=== PATIENT | male | born 1995 | race Caucasian/White ===

== ENCOUNTER 2023-02-24 12:43 | Emergency (ER) | payer OTHER, SELFPAY ==
--- NOTE | ~2023-02-24 | XR_ITS ---
EXAMINATION: XR chest 2V DATE: 02/24/2023 14:51 INDICATION: Tightness and burning sensation at the chest TECHNIQUE: PA and lateral views of the chest were obtained. COMPARISON: None FINDINGS: The lungs are clear with no focal airspace opacities, pulmonary edema, pleural effusion or pneumothor ax. The cardiomediastinal silhouette is normal. Mild thoracic spondylosis with mild anterior wedging of a couple mid thoracic vertebral bodies. IMPRESSION: 1. No acute cardiopulmonary disease. Reviewed, dictated and finalized at location A.
[2023-02-24 13:20] VITALS: BP 167/80; PULSE 67; RESP 16; TEMP 36.7; O2SAT 100
--- NOTE | 2023-02-24 14:07 | ED.GENADULT ---
HPI - General Adult General Chief complaint: Upper Respiratory Infection Stated complaint: Sore Throat Source: patient Mode of arrival: ambulatory Limitations: no limitations History of Present Illness HPI narrative: Patient presents for evaluation of tightness and discomfort in his throat and chest for the past two days. He woke from sleep with his symptoms. He thought his symptoms were related to heartburn. He tried taking pepcid but it did not help. He went to [facility] urgent care earlier today and was given omeprazole for his symptoms. He was not pleased with his care there. He states it feels like sandpaper when he swallows. He denies any SOB, nausea or vomiting. He does not particularly watch his diet. He consumes ETOH four days per week with anywhere between 4-10 drinks per episode. He states he is being treated for hemorrhoids at the present time. He states he had an EKG by his PCP a few weeks ago which was normal. No known family hx of CAD> Related Data Allergies Allergy/AdvReac Type Severity Reaction Status Date / Time No Known Allergies Allergy Unverified 01/13/19 18:30 Review of Systems Review of Systems: CONSTITUTIONAL: Denies fever, chills, or sweats. EYES: Denies visual changes, redness, or discharge. ENT: Reports throat tightness and irritation. Denies rhinorrhea, congestion, or otalgia. CARDIOVASCULAR: Reports chest tightness and discomfort, which is more noticeable when he swallows. Denies palpitations, or edema. RESPIRATORY: Denies cough or dyspnea. GASTROINTESTINAL: Denies abdominal pain, nausea, vomiting, or diarrhea. GENITOURINARY: Denies dysuria or hematuria. SKIN: Denies rash or itching. MUSCULOSKELETAL: Denies back pain, joint pain, or myalgia. NEUROLOGIC: Denies headache, numbness, dizziness, or weakness. PSYCHIATRIC: Denies anxiety or depression. [facility] Past Medical History Medical History (Updated 02/24/23 @ 15:21 by Vikram Newby, AMELIA, KIMBERLEY) No pertinent past medical history Surgical History Surgical History No pertinent past surgical history Family History Family History Mother Family history non-contributory Social History Social History Alcohol intake: current Alcohol use details: 4-10 drinks 4 times per week Gender identity (if verbalized by the patient): Male Spiritual care concerns: No Exam Narrative: GENERAL: Well-appearing, well-nourished, and in no acute distress. HEAD: Normocephalic, atraumatic. EYES: PERRLA and EOMI. ENT: Nares clear, no rhinorrhea or epistaxis. Mucous membranes moist. Oropharynx without tonsillar hypertrophy exudate or other lesions. Bilateral TMs pearly berg nonbulging NECK: Supple. No adenopathy or masses. No carotid bruits or JVD CHEST: Clear to auscultation. No respiratory distress. No wheezes rales or rhonchi HEART: Regular rate and rhythm. No murmur heard. Normal peripheral pulses. ABDOMEN: Soft, nontender, nondistended, normal active bowel sounds. EXTREMITIES: Normal range of motion. No edema. SKIN: Warm, dry, no rash. NEURO: No focal deficits. Alert and oriented x3. PSYCH: Normal mood and affect. Course Course Emergency Course: This is a 28-year-old male who presented for evaluation of throat discomfort. Exam is consistent with gastritis with esophagitis. Advise he cut down on alcohol consumption. Advised on bland diet. Pepcid will usually not provide on demand relief. Take omeprazole 30 minutes before you eat or drink anything drain the day for the next 2 weeks. Relates will help with onto me and symptoms. Chest x-ray normal. Follow-up with primary provider. Go to the emergency department for worsening symptoms. Patient in agreement plan of care. Level of Care: Express Care Visit Vital Signs Vital signs: Vital Signs Te
== END 2023-02-24 15:26 | disposition home or self-care (01) ==
PROVIDERS: Emergency Provider Nurse Practitioner
DX: K21.00 Gastro-esophageal reflux disease with esophagitis, without bleeding (principal)
CPT/HCPCS: 71046; 87081; 87880; 99203; G0463

== ENCOUNTER 2024-08-29 11:51 | Emergency (ER) | payer OTHER, SELFPAY ==
[2024-08-29 11:58] VITALS: BP 164/87; PULSE 89; RESP 16; TEMP 36.9; O2SAT 100
--- NOTE | 2024-08-29 12:14 | ED.DIZZY ---
HPI - Dizziness General Chief Complaint: Dizziness Stated Complaint: dizziness Time Seen by Provider: 08/29/24 12:14 Source: patient Mode of arrival: ambulatory Limitations: no limitations History of Present Illness HPI Narrative: 29 yo M presents with c/o intermittent dizziness, brain fog for 2 wks. No N/V, pain or vision changes. Thought might be allergies so started claritin last week. did have a little nasal congestion but resolved. Wants ears check. Hx of draining ears . Nothing makes dizziness worse or better. Was noticing more when he got home from work and would lay down on couch but last few nights when laying down on couch or bed feels fine. Dizziness not affected work or driving. just feeling a little forgetful . All systems reviewed and negative except as noted above. Related Data Allergies Allergy/AdvReac Type Severity Reaction Status Date / Time No Known Allergies Allergy Unverified 08/29/24 12:06 Review of Systems Review of Systems: CONSTITUTIONAL: Denies fever, chills, or sweats. EYES: Denies visual changes, redness, or discharge. ENT: reports rhinorrhea, congestion. Denies sore throat, or otalgia. CARDIOVASCULAR: Denies chest pain, palpitations, or edema. RESPIRATORY: Denies cough or dyspnea. GASTROINTESTINAL: Denies abdominal pain, nausea, vomiting, or diarrhea. GENITOURINARY: Denies dysuria or hematuria. SKIN: Denies rash or itching. MUSCULOSKELETAL: Denies back pain, joint pain, or myalgia. NEUROLOGIC: Denies headache, numbness, or weakness. reports dizziness PSYCHIATRIC: Denies anxiety or depression. All other systems reviewed are negative, except as documented in HPI. [facility] Past Medical History Medical History (Updated 08/29/24 @ 12:23 by Bridget Hogan NP) No pertinent past medical history Surgical History Surgical History No pertinent past surgical history Family History Family History Mother Family history non-contributory Social History Social History Alcohol intake: current Alcohol use details: 4-10 drinks 4 times per week Gender identity (if verbalized by the patient): Male Spiritual care concerns: No Comments At time of signature, agree with nursing past medical, surgical, social and family history. There is no relevant family history pertinent to the presenting complaint. Exam Narrative: GENERAL: This is a well-nourished, well-developed patient, in no apparent distress. HEAD: normocephalic, atraumatic. EYES: PERRL. Sclera clear/white. Vision is grossly intact. EARS: External ears normal, auditory canals clear and without drainage, Fluid, erythema L TM, R TM normal without perforation bilaterally. Hearing grossly intact. NOSE: External nose normal with no obvious nasal discharge, nares without redness, no rhinorrhea. THROAT: Mucous membranes moist, posterior pharynx clear. NECK: Neck supple, non-tender without lymphadenopathy, masses or thyromegaly. CARDIOVASCULAR: Regular rate and rhythm without murmurs, gallops, or rubs. RESPIRATORY: Clear to auscultation. Breath sounds equal bilaterally. No wheezes, rales, or rhonchi. SKIN: warm, Dry, intact with no suspicious lesions or rash, good texture and turgor. NEURO: awake, alert, and oriented to person, place and time. There were no obvious focal neurologic abnormalities. EXTREMITIES: No joint tenderness, effusion, or edema noted. Course Course Level of Care: Express Care Visit Vital Signs Vital signs: Vital Signs Temperature 36.9 C 08/29/24 11:58 Pulse Rate 89 08/29/24 11:58 Respiratory Rate 16 08/29/24 11:58 Blood Pressure 164/87 H 08/29/24 11:58 Pulse Oximetry 100 08/29/24 11:58 Oxygen Delivery Room Air 08/29/24 11:58 Temperature 36.9 C 08/29/24 11:58 Pulse Rate 89 08/29/24 11:58 Respiratory Rate 16 08/29/24 11:58 Blood Pressure 164/87 H 08/29/24 11:58 Pulse Oximetry 100 08/29/24 11:58 Oxygen Delivery Room Air 08/29/24 11:58 reviewed MDM - Dizziness MDM Narrative Medical decision making narrative: will treat pt for L serous otitis media. BP elevated 167/77. No CP or SOB. family hx of HTN. pt states BP high due to anxiety when seeing doctors . recommend follow up with PCP. alert, nontoxic Please be advised this is a medical document. It is intended for [id number] communication. It is written in medical language and may contain unfamiliar abbreviations or verbiage. Medical documents are intended to carry relevant information, facts as evident, and the clinical opinion of the practitioner at the time of the encounter. This report may have been done utilizing a voice recognition system. Attempts have been made to correct errors. However, there may be uncorrected grammatical, spelling, and recognition errors present. The file time of this note does not necessarily represent the time of service. Discharge Plan Discharge Clinical Impression: Vertigo Acute serous otitis media, left ear Qualifiers: Recurrence: not specified as recurrent Qualified Code(s): H65.02 - Acute serous otitis media, left ear Patient Disposition: Home, Self-Care Condition: Stable Instructions: Antibiotic Form, Fluid In The Ear (Serous Otitis Media) (ED) Additional Instructions: take medications as prescribed. Drink at least 64 oz water a day. Call today and schedule a follow-up appointment with your primary care physician to further evaluate her symptoms. Patient Language: Latvian Prescriptions: New amoxicillin 875 mg tablet 875 mg PO Q12H 10 Days Qty: 20 0RF meclizine 25 mg tablet 25 mg PO Q6-8H PRN (Reason: dizziness) Qty: 30 0RF methylprednisolone [Medrol (Seun)] 4 mg tablets,dose pack See Rx Instructions PO .COMPLEX Qty: 21 0RF Rx Instructions: orally per package directions Follow-up/Referrals: PHYSICIAN NOT ON STAFF,NONSTAFF [Primary Care Provider] - Time of Disposition: 12:25
[2024-08-29 12:30] VITALS: BP 167/77
--- OUTSIDE RECORDS SUMMARY | 2024-08-29 12:56 | XMS_ITS | Referral Summary ---
Author Organization [facility] [place] [address] lto Address [address] [place] [address] Care Team Providers Care House Cleaner Name Role Phone Dagoberto Baez MD Primary Care Provider [phone] Allergies No known active allergies Medications Anucort-HC 25 mg suppository UNWRAP AND INSERT 1 SUPPOSITORY RECTALLY TWICE DAILY FOR 2 WEEKS 3 Active omeprazole (PriLOSEC) 40 mg capsule Take 1 capsule (40 mg total) by mouth daily 30 capsule 3 Active Active Problems No known active problems Social History Tobacco Use Types Packs/Day Years Used Date Smoking Tobacco: Never Tobacco Cessation:Counseling Given: Not Answered Personal Safety Answer Date Recorded Getting School Help Needed Not on file 07/18 Sex and Gender Information Value Date Recorded Sex Assigned at Not on file Legal Sex Male 11:29 PM [employer] Gender Identity Not on file Sexual Orientation Not on file Last Filed Vital Signs Vital Sign Reading Time Taken Comments Blood Pressure 106/52 02/24/2023 8:53 AM CDT Pulse 76 02/24/2023 8:53 AM CDT Temperature 36.4 C (97.6 F) 02/24/2023 8:53 AM CDT Respiratory Rate 14 02/24/2023 8:53 AM CDT Oxygen Saturation 98% 02/24/2023 8:53 AM CDT Inhaled Oxygen Concentration - - Weight 57.9 kg (127 lb 9.6 oz) 02/24/2023 8:53 A M CDT Height 180.3 cm (5' 11 ) 02/24/2023 8:53 AM CDT Body Mass Index 17.8 02/24/2023 8:53 AM CDT Plan of Treatment Not on file Insurance [facility] CHOICE [facility]US [facility] HMO/PPO Address: [place] [address] Care Teams House Cleaner Relationship Specialty Start Date End Date Dagoberto Baez MD PCP - General Internal Medicine 02/24/23
--- OUTSIDE RECORDS SUMMARY | 2024-08-29 12:56 | XMS_ITS | Clinical Summary ---
Author Organization [facility] [place] [address] lto Address [address] [place] [address] Care Team Providers Care Knee Bolter Name Role Phone Dagoberto Baez MD Primary Care Provider [phone] Allergies No known active allergies Medications Anucort-HC 25 mg suppository UNWRAP AND INSERT 1 SUPPOSITORY RECTALLY TWICE DAILY FOR 2 WEEKS 3 Active omeprazole (PriLOSEC) 40 mg capsule Take 1 capsule (40 mg total) by mouth daily 30 capsule 3 Active Active Problems No known active problems Medical History Medical History Date Comments Hemorrhoids Social History Tobacco Use Types Packs/Day Years Used Date Smoking Tobacco: Never Tobacco Cessation:Counseling Given: Not Answered Personal Safety Answer Date Recorded Getting School Help Needed Not on file 07/18 Sex and Gender Information Value Date Recorded Sex Assigned at Not on file 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 Gender Identity Not on file Sexual Orientation Not on file Obstetrics History Last Filed Vital Signs Vital Sign Reading [...] 02/24/2023 8:53 AM CDT Plan of Treatment Health Maintenance Due Date Last Done Comments Depression Screening 1995 Hepatitis C Screening 1995 Varicella Vaccines (1 of 2 - 13+ 2-dose series) 02/08/2008 Hepatitis B Screening 2013 Regular Well Visit/Exam 18-64 2013 Influenza Vaccine (#1) 2024 DTaP/Tdap/Td Vaccine (2 - Td or Tdap) 01/13/2029 01/13/2019 HPV Vaccines Aged Out No longer eligi ble based on patient's age to complete this topic Pneumococcal vaccine <65 Aged Out No longer eligible based on patient's age to complete this topic Insurance [facility] CHOICE PLUS [facility] HMO/PPO Address: [place] [address] Care Teams Knee Bolter Relationship Specialty Start Date End Date Dagoberto Baez MD PCP - General Internal Medicine 02/24/23
== END 2024-08-29 12:31 | disposition home or self-care (01) ==
PROVIDERS: Emergency Provider Nurse Practitioner Family
DX: R42 Dizziness and giddiness (principal); H65.02 Acute serous otitis media, left ear
CPT/HCPCS: 99213; G0463

== ENCOUNTER 2025-02-16 16:00 | Emergency (ER) | payer OTHER, SELFPAY ==
--- OUTSIDE RECORDS SUMMARY | 2025-02-16 16:04 | XMS_ITS | Clinical Summary ---
Author Organization [facility] [place] [address] lto Address [address] [place] [address] Care Team Providers Care Programmer Numerical Control Name Role Phone Dagoberto Baez MD Primary Care Provider [phone] Allergies No known active allergies Medications Anucort-HC [...] on file Legal Sex Male 11:[address] [employer] Gender Identity Not on file Sexual Orientation [...] A M CDT Height 180.3 cm (5' 11) 02/24/2023 8:53 AM CDT Body Mass Index 17.8 02/24/2023 8:53 AM CDT Plan of Treatment Health Maintenance Due Date Last Done Comments Depression Screening 1995 Hepatitis C Screening 1995 Varicella Vaccines (1 of 2 - 13+ 2-dose series) 02/08/2008 Hepatitis B Screening 2013 Regular Well Visit/Exam 18-64 2013 HPV Vaccines (1 - 3-dose SCD M series) 2022 Influenza Vaccine (#1) 2025 DTaP/Tdap/Td Vaccine (2 - Td or Tdap) 01/13/2029 01/13/2019 Pneumococcal vaccine <65 Aged Out No longer eligible based on patient's age to complete this topic Insurance [facility] CHOICE PLUS [facility] HMO/PPO Address: [place] [address] Care Teams Programmer Numerical Control Relationship Specialty Start Date End Date Dagoberto Baez MD PCP - General Internal Medicine 02/24/23
[2025-02-16 16:08] VITALS: BP 158/97; PULSE 127; RESP 14; TEMP 36.9; O2SAT 100
--- NOTE | 2025-02-16 16:23 | ED.SKABFB ---
HPI - Skin/Abscess/Foreign Bdy General Chief complaint: Skin/Abscess/Foreign Body Stated complaint: rash around groin and thighs Time Seen by Provider: 02/16/25 16:15 Source: patient Mode of arrival: ambulatory Limitations: no limitations History of Present Illness HPI narrative: Sacha is a 30-year-old male patient presenting to the clinic today with complaints of a rash to his groin and inner thighs times 1 day. He reports he woke up yesterday and morning and had a itchy rash in his groin. States he has been at [employer]. States he does sweat a lot at night when he sleeps. Has applied some miconazole cream to the area and it helped control the itch. Denies any fevers, chills, body aches. Denies any environmental changes. Related Data Allergies Allergy/AdvReac Type Severity Reaction Status Date / Time No Known Allergies Allergy Verified 02/16/25 16:14 Review of Systems Review of Systems: Pertinent positives per HPI. Patient denies any fever, chills, headache, visual changes, dizziness, cough, runny nose, sore throat, shortness of breath, chest pain, palpitations, nausea, vomiting, diarrhea, constipation, abdominal pain, or any urinary issues. [facility] Past Medical History Medical History No pertinent past medical history Surgical History Surgical History No pertinent past surgical history Family History Family History Mother Family history non-contributory Social History Social History Alcohol intake: current Alcohol use details: 4-10 drinks 4 times per week Gender identity (if verbalized by the patient): Male Spiritual care concerns: No Comments At the time of my signature, I reviewed and agree with the nursing past medical, surgical, social, and family history. There is no relevant family history pertinent to the patient complaint. Exam Narrative: General: Well-developed, well nourished, in no apparent distress Head: Normocephalic, atraumatic. Cardio: Regular rate and rhythm, s1 and s2 normal, no murmur appreciated. Resp: Clear to auscultation bilaterally, no rhonchi, rales, wheezing or rubs. Integumentary: Shallow Water, warm, and dry, red beefy glistening rash on scrotum area and inner thighs with satellite lesions Course Course Emergency Course: Portions of this record may have been created with voice recognition software. Level of Care: Express Care Visit Vital Signs Vital signs: Vital Signs Temperature 36.9 C 02/16/25 16:08 Pulse Rate 127 H 02/16/25 16:08 Respiratory Rate 14 02/16/25 16:08 Blood Pressure 158/97 H 02/16/25 16:08 Pulse Oximetry 100 02/16/25 16:08 Oxygen Delivery Room Air 02/16/25 16:08 Temperature 36.9 C 02/16/25 16:08 Pulse Rate 127 H 02/16/25 16:08 Respiratory Rate 14 02/16/25 16:08 Blood Pressure 158/97 H 02/16/25 16:08 Pulse Oximetry 100 02/16/25 16:08 Oxygen Delivery Room Air 02/16/25 16:08 Vital signs reviewed MDM - Skin/Abscess/Foreign Bdy MDM Narrative Medical decision making narrative: At the time of visit patient is resting comfortably on the exam table. Patient appears to be nontoxic. Complaints of a rash to his groin and inner thighs times 1 day. He reports he woke up yesterday and morning and had a itchy rash in his groin. States he has been at golfing. States he does sweat a lot at night when he sleeps. Has applied some miconazole cream to the area and it helped control the itch. Denies any fevers, chills, body aches. Denies any environmental changes. On exam patient has red beefy glistening rash on scrotum area and inner thighs with satellite lesions Plan: I suspect patient has jock itch. Prescription for nystatin cream was sent to the pharmacy. Supportive measures were discussed with the patient and they voiced understanding discharge instructions and agrees to treatment plan. Return precautions reviewed Differential Diagnosis Differential diagnosis: Likely abscess of skin or subcutaneous tissue, dermatophytosis, urticaria, herpes zoster, cellulitis, eczema, insect bites, impetigo and other (Yeast infection) Discharge Plan Discharge Clinical Impression: Jock itch Patient Disposition: Home Condition: Stable Instructions: Antibiotic Form, Skin Yeast Infection (ED) Additional Instructions: Apply nystatin cream as directed Keep area clean and dry Wash daily with soap and water and pat dry Follow-up with your PCP in 2 weeks if symptoms persist Patient Language: Sao [place]an Prescriptions: New nystatin 100,000 unit/gram cream 1 applic topical BID 14 Days Qty: 30 0RF No Action amoxicillin 875 mg tablet 875 mg PO Q12H 10 Days Qty: 20 0RF meclizine 25 mg tablet 25 mg PO Q6-8H PRN (Reason: dizziness) Qty: 30 0RF methylprednisolone [Medrol (Seun)] 4 mg tablets,dose pack See Rx Instructions PO .COMPLEX Qty: 21 0RF Rx Instructions: orally per package directions Follow-up/Referrals: PHYSICIAN NOT ON STAFF,NONSTAFF [Primary Care Provider] Time of Disposition: 16:20 Quality NIHSS Nursing Documentation ED NIHSS nursing documentation: reviewed/agree
== END 2025-02-16 16:25 | disposition home or self-care (01) ==
PROVIDERS: Emergency Provider Nurse Practitioner Family
DX: B35.6 Tinea cruris (principal)
CPT/HCPCS: 99213; G0463